=== PATIENT | male | born 1965 | race Caucasian/White ===

== ENCOUNTER 2025-07-11 18:12 | Emergency (ER) | payer BC, SELFPAY ==
--- OUTSIDE RECORDS SUMMARY | 2024-06-25 07:45 | XMS_ITS ---
Author Organization [facility] Address [address] [place] [address] [address] [place] [address] Care Team Providers Care Primary School Teacher Name Role Phone Elie Faith Unavailable [phone] Jake RIDDLE, Ino Unavailable Unavailable Lucia Faith Unavailable [phone] Medications Medication SIG (Take, Route, Frequency, Duration) Notes Start Date End Date Status Losartan Potassium 100 MG TAKE 1 TABLET BY MOUTH ONCE DAILY Oral; Duration: 90 Days Active PROzac 40 MG 1 capsule Orally Onc e a day Active Encounters Encounter Location Date Provider Diagnosis [facility] [address] [place] [address] [address] [place] [address] 06/25/2024 Lucia Faith Plan Of Treatment No Information Progress Notes * Nathaniel VARELADOB:[birth year] (60 yo M)Acc No.[id number]:06/25/2024 Patient: Nathaniel SIMON Provider: Butch Faith MD :1965 A ge:59 Y S ex:Male Date:06/25/2024 Address:[address] [place], [place] [id number] Subjective: * Chief Complaints: * * Medical History: * Medications: T aking PROzac 40 MG Capsule 1 capsule Orally Once a day , Taking Losartan Potassium 100 MG Tablet TAKE 1 TABLET BY MOUTH ONCE DAILY Oral Objective: * Vitals: Assessment: Plan: * Treatment: * Billing Information: * Visit Code: * Procedure Codes: * Electronic signature of Jennifer Faith MD on 07/11/2025 at 06:15 PM CDT Sign off status: Pending * Provider: Butch Faith MD Date: 0 06/25/2024 Generated for Dileep jaime/Evelio/Maty on: 0 07/11/2025 06:15 PM CDT
--- OUTSIDE RECORDS SUMMARY | 2024-06-25 08:00 | XMS_ITS ---
Author Organization [facility] Address [address] [place] [address] [address] [place] [address] Care Team Providers Care Newspaper Inserter Name Role Phone Elie Faith Unavailable [phone] Ino Joseph MD Unavailable Unavailable REASON FOR VISIT meds Encounters Encounter Location Date Provider Diagnosis [facility] [address] [place] [address] [address] [place] [address] 06/25/2024 Elie Faith Plan Of Treatment No Information Progress Notes * Nathaniel VARELADOB:[birth year] (60 yo M)Acc No.[id number]:06/25/2024 Progress Notes Patient: Nathaniel SIMON Provider: Dionne Faith MD :1965 A ge:59 Y S ex:Male Date:06/25/2024 Address:[address] [place], [place] [id number] Subjective: * Chief Complaints: * 1 . Meds. * Medical History: Objective: * Vitals: Assessment: Plan: * Treatment: * Billing Information: * Visit Code: * Procedure Codes: * Electronic signature of Natalie Faith MD on 07/11/2025 at 06:15 PM CDT Sign off status: Pending * Provider: Dionne Faith MD Date: 06/25/2024 Generated for Printi ng/Faxing/eTransmitting on: 07/11/2025 06:15 PM CDT
--- NOTE | 2025-07-11 18:13 | ED.UPPEXIN ---
HPI - Extremity Injury (Upper) General Chief Complaint: Extremity Injury, Upper Stated Complaint: Right Elbow Pain Time Seen by Provider: 07/11/25 18:13 Source: patient Mode of arrival: ambulatory Limitations: no limitations History of Present Illness HPI narrative: Nathaniel is a 60-year-old male patient presenting to the clinic today with complaints of right elbow swelling x1 month. He reports at times it can be painful. Denies any pain currently. 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 No redness or erythema. No fevers. Related Data Home Medications ?Medication ?Instructions ?Recorded ?Confirmed ?Last Taken ?Type buspirone 7.5 mg tablet 7.5 mg PO BID 09/20/19 09/20/19 Unknown History trazodone 25 mg PO HS 09/20/19 09/20/19 Unknown History fluoxetine 40 mg capsule mg 07/11/25 Unknown History losartan 100 mg tablet mg 07/11/25 Unknown History Allergies Allergy/AdvReac Type Severity Reaction Status Date / Time No Known Allergies Allergy Unverified 07/11/25 18:13 Review of Systems Review of Systems: Pertinent positives per HPI. Patient denies any fever, chills, rash, headache, visual changes, dizziness, cough, runny nose, sore throat, shortness of breath, chest pain, palpitations, nausea, vomiting, diarrhea, constipation, abdominal pain, or any urinary issues. PMFSH Comments At the time of my signature, I reviewed and agree with the nursing past medical, surgical, social, and family history. There is no relevant family history pertinent to the patient complaint. Exam Narrative: General: Well-developed, well nourished, in no apparent distress Head: Normocephalic, atraumatic. Cardio: Regular rate and rhythm, s1 and s2 normal, no murmur appreciated. Resp: Clear to auscultation bilaterally, no rhonchi, rales, wheezing or rubs. Musculoskeletal: No deformity, swelling with fluctuance to the right posterior elbow, non-tender to palpation, grossly normal range of motion, muscle strength strong and equal, peripheral pulse strong, no edema, no cyanosis, normal gait and station Course Course Emergency Course: Portions of this record may have been created with voice recognition software. Level of Care: Express Care Visit Vital Signs Vital signs: Vital Signs Temperature 36.4 C L 07/11/25 18:24 Pulse Rate 73 07/11/25 18:24 Respiratory Rate 16 07/11/25 18:24 Blood Pressure 149/78 H 07/11/25 18:24 Pulse Oximetry 97 07/11/25 18:24 Oxygen Delivery Room Air 07/11/25 18:24 Temperature 36.4 C L 07/11/25 18:24 Pulse Rate 73 07/11/25 18:24 Respiratory Rate 16 07/11/25 18:24 Blood Pressure 149/78 H 07/11/25 18:24 Pulse Oximetry 97 07/11/25 18:24 Oxygen Delivery Room Air 07/11/25 18:24 Vital signs reviewed MDM - Extremity Injury (Upper) MDM Narrative Medical decision making narrative: At the time of visit patient is resting comfortably on the exam table. Patient appears to be nontoxic. Complaints of right elbow swelling x1 month. He reports at times it can be painful. Denies any pain currently. 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 No redness or erythema. No fevers. On exam patient has swelling and fluctuance to the right elbow, nontender to palpation, no induration, no redness or erythema. Patient is requesting work note. Plan: I suspect patient has olecranon bursitis. Gregor wrap in ice pack was given to the patient. Station, circulation, motion within normal limits after application of the Gregor wrap. Supportive measures were discussed with the patient and they voiced understanding discharge instructions and agrees to treatment plan. Return precautions reviewed Differential Diagnosis Differential diagnosis: Likely other (Olecranon bursitis, elbow effusion, contusion, soft tissue swelling, humeral fracture, olecranon fracture) Discharge Plan Discharge Clinical Impression: Olecranon bursitis of right elbow Patient Disposition: Home Condition: Stable Instructions: Antibiotic Form, Elbow Bursitis (ED) Additional Instructions: Rest, ice, elevate, and wear gregor wrap as directed Tylenol/motrin for pain as discussed. Gradually bear weight No running or sports until healed. Follow up with your PCP if symptoms persist more than 1 week. Patient Language: Serbian Prescriptions: No Action buspirone 7.5 mg Tablet 7.5 mg PO BID trazodone 25 mg PO HS fluoxetine 40 mg capsule losartan 100 mg tablet Follow-up/Referrals: Gildardo,Juan Wharton MD [Primary Care Provider, Unknown] Stand Alone Forms: Work/School Release IP Time of Disposition: 18:30 Quality NIHSS Nursing Documentation ED NIHSS nursing documentation: reviewed/agree
--- OUTSIDE RECORDS SUMMARY | 2025-07-11 18:15 | XMS_ITS | Clinical Summary ---
Author Organization [facility] Address [address] [place] [address] Phone Care Team Providers Care Cigar Maker Name Role Phone Chirag Perez Primary Care Provider Allergies Active Allergy Reactions Criticality Noted Date Comments Codeine Shortness of Breath,Itching,Swelling 10/19/2015 Penicillins Anaphylaxis 10/30/2015 Medications lisinopril (PRINIVIL, ZESTRIL) 20 MG Tablet Take 20 mg by mouth daily. Active Esomeprazole Magnesium (NEXIUM PO) Take 1 Tab by mouth daily. Active Multiple Vitamins-Mineral s (MULTIVITAMIN PO) Take 1 Tab by mouth daily. Active Eastpoint-3 Fatty Acids (FISH OIL) 1200 MG Capsule Take 1,200 mg by mouth daily. Active B Complex Vitamins (B COMPLEX PO) Take 1 Tab by mouth daily. Active niacin 500 MG Tablet Take 500 mg by mouth 2 times daily. Active diazepam (VALIUM) 5 MG Tablet Valium 5mg #5 1 po 1 hour prior to MRI 5 Tab 0 10/30/2015 Active Nitroglycerin (RECTIV) 0.4 % Ointment 1 Inch by Rectal route 2 times daily. 1 Tube 0 01/14/2016 Active Family History Medical History Relation Name Comments No Known Problems Father No Known Problems Mother Relation Name Status Comments Father Alive Mother Alive Social History Tobacco Use Types Packs/Day Years Used Date Smoking Tobacco: Every Day Tobacco Cessation:Ready to Q uit: Yes; Counseling Given: Yes Alcohol Use Standard Drinks/Week Comments No 0 (1 standard drink = 0.6 oz pur e alcohol) Sex and Gender Information Value Date Recorded Sex Assigned at Not on file Legal Sex Male 8:42 PM CDT Gender Identity Not on file Sexual Orientation Not on file Last Filed Vital Signs Vital Sign Reading Time Taken Comments Blood Pressure 162/92 10/30/2015 7:50 AM TAWER Pulse 103 10/30/2015 7:50 AM TAWER Temperature 36.1 C (97 F) 10/30/2015 7:50 AM TAWER Respiratory Rate - - Oxygen Saturation 98% 10/30/2015 7:50 AM TAWER Inhaled Oxygen Concentration - - Weight 121.1 kg (267 lb) 07/02/2016 8:40 AM CDT Height 172.7 cm (5' 8) 10/30/2015 7:50 AM TAWER Body Mass Index 40.6 10/30/2015 7:50 AM TAWER Plan of Treatment Health Maintenance Due Date Last Done Comments Hepatitis C Virus (HCV) Screening 1965 TdaP Immunization 1965 Cologuard 2010 Immunochemical Fecal Occult Blood 2010 Pneumococcal Immunization (50+ years) (1 of 1 - PCV) 2015 Zoster Immunization (1 of 2) 2015 SARS-COV-2 Immunization ( - 2023- season) 2024 Influenza Immunization (#1) 2025 Colonoscopy 09/21/2025 09/21/2015 Colorectal Cancer Screening 09/21/2025 Respiratory Syncytial Virus (RSV) Immunization (Adult) (1 - 1-dose 75+ series) 2040 PSA Discussion Discontinued 09/25/2017, 03/21, 01/21/2017, Additional history exists Hepatitis B Immunization Aged Out No longer eligible based on patient's age to complete this topic Human Papillomavirus (HPV) Immunization Aged Out No longer eligible based on patient's age to complete this topic Meningococcal Immunization (ACWY) Aged Out No longer eligible based on patient's age to complete this topic Rotavirus Immunization Aged Out No lo nger eligible based on patient's age to complete this topic Procedures Procedure Name Priority Date/Time Associated Diagnosis Comments PSA DIAGNOSTIC,TOTAL Routine 09/25/2017 10:14 AM TAWER Malignant neoplasm of prostate (HCC) Elevated prostate specific antigen (PSA) HM COLONOSCOPY Routine 09/21/2015 from Last 3 Months or Most Recently Relevant to Health Maintenance Results * PSA DIAGNOSTIC,TOTAL (09/25/2017 10:14 AM TAWER) PSA, TOTAL (PROSTATIC SPECIFIC ANTIGEN) 0.01 0.00 - 4.00 ng/mL 09/25/2017 1:46 PM TAWER [facility] Blood specimen (specimen) Venipuncture / Unknown 09/25/2017 10:14 AM TAWER 09/25/2017 12:49 PM TAWER Narrative [facility] - 09/25/2017 1:46 PM TAWER PSA NOTE: The PSA value should be used in conjunction with information available from clinical evaluation and other diagnostic procedures. Zelalem Whitfield MD CHEMISTRY ORDERABLES Final Result [facility] [address] [place] [address] * COLONOSCOPY (09/21/2015) Willian Sotelo DO PROCEDURE/MINOR SURGICAL ORDERAB LES Final Result from Last 3 Months or Most Recently Relevant to Health Maintenance Insurance on file Care Teams Cigar Maker Relationship Specialty Start Date End Date Chirag Perez [address] [place] [address] PCP - General Internal Medicine 07/12/16
--- OUTSIDE RECORDS SUMMARY | 2025-07-11 18:15 | XMS_ITS | Clinical Summary ---
Author Organization [facility] Address [address] [place] [address] Care Team Providers Care Office Executive Name Role Phone Cindy Pinedo NP Unavailable Ace Macario MD Unavailable Óscar Kramer MD Unavailable Juan Ewing MD Primary Care Provider Dino Aguilar MD, Adal Uribe Unavailable Allergies Active Allergy Reactions Criticality Noted Date Comments Amoxicillin Anaphylaxis High Reaction: ANAPHYLAXIS-PATIENT DECLINES ALLERGY Codeine Shortness of breath Medium Reaction: DIFF BREATHING, Codeine Sulfate Shortness of breath High 12/24/2024 Erythromycin Anaphylaxis High Reaction: ANAPHYLAXIS-PT DECLINES ANY ALLERGIES Hydrocodone Shortness of breath High 12/24/2024 Hydrocodone-Acetaminop hen Itching Medium Reaction: ITCHING Iodine Shortness of breath High 12/24/2024 Reaction: DIFF BREATHING, Morphine Shortness of breath Medium Reaction: DIFF BREATHING, Oxycodone-Acetaminophe n Shortness of breath High Reaction: DIFF BREATHING, Oxycodone-Aspirin Shortness of breath Medium Reaction: DIFF BREATHING, Penicillin V Potassium Anaphylaxis High 12/24/2024 Penicillins Anaphylaxis High Reaction: ANAPHYLAXIS Pentazocine Shortness of breath Medium Reaction: DIFF BREATHING, Propoxyphene-Acetamino phen Shortness of breath Medium Reaction: DIFF BREATHING, Bupropion Itching Low 01/29/2019 Medications coenzyme Q10 100 mg capsule Take 1 capsule (100 mg total) by mouth daily Active multivitamin with minerals (Men's One Daily) tablet Take 1 tablet by mouth daily Active FLUoxetine (PROzac) 40 mg capsule Take 1 capsule (40 mg total) by mouth daily 90 capsule 3 04/29/2024 Active cyclobenzaprine (FLEXERIL) 5 mg tablet Take 1 tablet (5 mg total) by mouth 3 (three) times a day as needed for muscle spasms 90 tablet 04/29/2024 Active diphenhydrAMINE (BENADRYL) 50 mg capsule Take 1 capsule (50 mg total) by mouth once as needed for itching 30 capsule 12/18/2024 Active losartan (COZAAR) 100 mg tablet TAKE 1 TABLET BY MOUTH EVERY DAY 90 tablet 1 06/09/2025 Active doxycycline (VIBRAMYCIN) 100 mg capsule Take 1 tablet/capsu le (100 mg total) by mouth 2 (two) times a day for 10 days 20 tablet/capsul e 06/17/2025 06/27/20 25 Active Problems Problem Noted Date Diagnosed Date Cellulitis of dorsum of hand 12/17/2024 Tinnitus of both ears 06/12/2023 Assessment & Plan (06/12/2023 8:40 AM CDT): Hearing test [facility] A Few Causes of Ringing in Your Ears (Tinnitus) Agree with Dental evaluation today 1 pm and sleep apnea appointment Tobacco use 12/05/2022 Hematochezia 11/01/2022 Overview (11/01/2022): Added automatically from request for surgery [id number] Encounter for screening colonoscopy 11/01/2022 Overview (11/01/2022): Added automatically from request for surgery [id number] Allergic rhinitis 04/28/2021 Assessment & Plan (04/28/2021 9:56 AM CDT): Nasal saline spray (Simply saline, Little Remedies, [place], [place]) 2 second sprays or 2 squeezes into each nostril while looking down over the sink, do not need to sniff in or Sinus Rinse (Neti-pot) 1-2 times daily Consider Cetirizine 10 mg (Zyrtec) daily in the AM CT Sinus - call with results Blood Allergy testing - call with results Chronic maxillary sinusitis 04/07/2021 Assessment & Plan (04/28/2021 9:56 AM CDT): Nasal saline spray (Simply saline, [place] Remedies, [place], [place]) 2 second sprays or 2 squeezes into each nostril while looking down over the sink, do not need to sniff in or Sinus Rinse (Neti-pot) 1-2 times daily Consider Cetirizine 10 mg (Zyrtec) daily in the AM CT Sinus - call with results Blood Allergy testing - call with results Assessment & Plan (04/07/2021 6:25 PM CDT): Referral to ENT ordered. History of chronic sinus problems on the left side, multiple rounds of antibiotics. He has side effects/poor response to various treatments thus far. ILIA is mild Mixed hyperlipidemia 08/12/2019 Assessment & Plan (04/29/2024 4:45 PM CDT): Cholesterol panel slightly increased from previous. Still not at goal, he declines statin therapy. Assessment & Plan (05/27/2022 1:52 PM CDT): Cholesterol panel still not at goal, ASCVD risk 13%. Discussed risk factors with patient (smoking, HTN, lipid panel). Pt taking Red yeast rice but is agreeable to statin therapy trial. Rosuvastatin and vascepa ordered, stopping the red yeast rice. Assessment & Plan (10/08/2021 9:30 AM ORNAMENTAL IRON WORKER): Cholesterol panel not at goal, ASCVD risk 13%. Discussed with patient of risk factors (smoking, hypertension, cholesterol numbers). Recommended statin therapy but patient refuses at this time because he wants to try a better quality of red yeast rice and work on his diet as it has been poor with the increased anxiety/stress. Will repeat in 3 months Assessment & Plan (04/07/2021 6:26 PM CDT): Status: Awaiting labs Current regimen: Red yeast rice extract 600 mg daily; patient prefers herbal over prescription statin therapy Side effects: None Liver function tests: Awaiting labs Assessment & Plan (10/02/2020 12:46 PM ORNAMENTAL IRON WORKER): Awaiting labs Continue current regimen Assessment & Plan (08/13/2019 8:39 AM CDT): Patient states he got some leg and muscle aches on the Crestor. He has been taking red yeast rice instead. He has lost some weight since he was last seen in January. We will recheck a lipid panel and CMP and have him follow up in [address] Gildardo Paul 08/12/2019 Assessment & Plan (10/08/2021 9:32 AM ORNAMENTAL IRON WORKER): Stress and anxiety has been worsening with work/home projects/finances. Does not feel like the Buspar is working, he is inquiring about Fluoxetine. Discussed starting Fluoxetine and what to expect, will trial daily Fluoxetine 10 mg. Can continue the Buspar as it may take 4-6 weeks for Fluoxetine to take full effect. F/U in 6 weeks, sooner if needed. Assessment & Plan (10/02/2020 12:46 PM ORNAMENTAL IRON WORKER): Stable with the Buspar, continue Denies SI Assessment & Plan (08/13/2019 8:45 AM CDT): Patient is against starting an SSRI for anxiety. He is mostly concerned for the sexual side effects as he has a history of prostate cancer and has difficulty with sexual function as baseline. He is interested in trying BuSpar. I discussed how BuSpar works and how it is used. Will start BuSpar 7.5 mg twice daily. Will have him follow up in [address] Gildardo Ellsworth 08/12/2019 Gastroesophageal reflux disease 01/29/2019 Assessment & Plan (10/02/2020 12:44 PM ORNAMENTAL IRON WORKER): Stable Encouraged healthy diet and exercise Avoid trigger foods including: carbonated beverages, caffeine, spicy, fried foods, tomatoes, cucumbers, and mint Avoid eating/drinking anything for at least 2 hours before bed. Sleep with bed propped. Primary osteoarthritis of both knees 01/29/2019 Assessment & Plan (10/02/2020 12:45 PM ORNAMENTAL IRON WORKER): Stable, continue current regimen Essential hypertension 01/29/2019 Assessment & Plan (04/29/2024 4:45 PM CDT): BP stable in office, renal function in good shape. Continuing Losartan. Assessment & Plan (05/27/2022 8:50 AM CDT): BP elevated in office. Pt has not taken medication yet this morning and is drinking coffee. Educated on importance of decreasing caffeine intake and taking medication. Continue Losartan 100mg. Assessment & Plan (10/08/2021 9:27 AM ORNAMENTAL IRON WORKER): Home blood pressures ranging 145-155/75-100. Losartan was increased to 50 mg daily via MyChart per Jojo Lawrence, DNP x 1.5 weeks ago. BP in office continues to be elevated and patient's home BP's not at goal. Will increase Losartan to 100 mg daily. I do think that anxiety is playing a role here. Assessment & Plan (09/24/2021 12:36 PM CDT): Home BP's 139/82-150/90s Has been borderline for awhile, work more stressful and sister recently passed. Will trial Losartan 25 mg, labs ordered Keep BP log and bring to [facility] Assessment & Plan (04/07/2021 6:25 PM CDT): BP borderline elevated. Awaiting blood work results today. No current antihypertensive prescription on board Watching diet, he needs more exercise Assessment & Plan (10/02/2020 12:45 PM ORNAMENTAL IRON WORKER): Mildly elevated in office today Will continue current regimen and continue to monitor Class 3 severe obesity due t o excess calories with serious comorbidity and body mass index (BMI) of 40.0 to 44.9 in adult 01/29/2019 Assessment & Plan (07/08/2024 2:58 PM CDT): Healthy, low carbohydrate lifestyle and exercise for 150min/week recommended. Assessment & Plan (06/05/2023 8:52 AM CDT): BMI Follow-up includes: nutrition counseling, exercise counseling, and education provided. Assessment & Plan (04/19/2023 8:36 AM CDT): Pt interested in weight loss medication. Discussed diet and pt seems to eat a lot of fried/fatty foods with beer. Diet modifications and exercise highly encouraged. Education provided on GLP-1 and discussed potential side effects. Pt denies any personal or family history of medullary thyroid cancer. If not covered, could consider a pharmacy services director if patient agreeable to help with the diet changes. Assessment & Plan (05/27/2022 8:50 AM CDT): Healthy, low carbohydrate lifestyle and exercise for 150min/week recommended Assessment & Plan (03/07/2022 10:27 AM CDT): - chronic, not at goal weight - recommend increased physical activity and diet monitoring Assessment & Plan (10/08/2021 9:27 AM ORNAMENTAL IRON WORKER): Healthy, low carbohydrate lifestyle and exercise for 150min/week recommended Assessment & Plan (09/24/2021 12:36 PM CDT): Healthy, low carbohydrate lifestyle and exercise for 150min/week recommended Assessment & Plan (06/22/2021 3:37 PM CDT): Healthy, low carbohydrate lifestyle and exercise for 150min/week recommended Assessment & Plan (04/07/2021 6:24 PM CDT): BMI Follow-up includes: nutrition counseling and exercise counseling. Assessment & Plan (10/02/2020 10:20 AM ORNAMENTAL IRON WORKER): Healthy, low carbohydrate lifestyle and exercise for 150min/week recommended Assessment & Plan (02/14/2020 2:24 PM CDT): Healthy, low carbohydrate lifestyle and exercise for 150min/week recommended Erectile dysfunction following simple prostatect ananth 01/29/2019 Assessment & Plan (04/29/2024 4:46 PM CDT): Patient needs to get in with Urology, he will check with insurance to see who is covered so we can place referral. Assessment & Plan (05/27/2022 1:50 PM CDT): Patient inquired about getting his Bimex injection refilled by me and stated that his Urologist stated that his general practitioner could fill this for him, pt also stated he was released from Urology. Patient is scheduled for appointment on 05/30/22 though. I informed patient that I would not refill this medication as it is from speciality and I am not as familiar with the injection medications... that is why he sees Urology. Patient seemed agitated and stated that I work for him because his insurance pays me so he would like for me to take over on these refills. I explained to patient that I would not be doing so and if he would like to find a different practitioner he could but he would likely be hard-pressed to find someone in our office to do so as this is a more specialized Urology medication for E.D. When I mentioned he had upcoming appointment with Urology he said that's not the point and then mentioned how it was a long drive for him to go there. I again reiterated I would not be doing this for him and he finally verbalized understanding. Assessment & Plan (10/02/2020 12:46 PM ORNAMENTAL IRON WORKER): Recently saw Dr. Macario (uro), trying new treatment and working well Continue current recommendations and regimen Malignant neoplasm of prostate 12/28/2015 Cancer Staging:Pathologic stage from 12/28/2015:Stage IV(T3a, N1, cM0, PSA: 10 to 19, Gazelle 7) - Signed by Cindy Pinedo NP on 08/01/2018 Assessment & Plan (10/02/2020 12:44 PM ORNAMENTAL IRON WORKER): Remission Followed by Dr. Macario (uro) Continue current regimen Resolved Problems Problem Noted Date Diagnosed Date Resolved Date Hypersomnia 08/12/2019 03/07/2022 Assessment & Plan (08/13/2019 8:39 AM CDT): History of fatigue and snoring. 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 I ordered a home sleep test and we will call him when this is authorized through his insurance. Will have him follow up in [address] Ewing hopefully he will have this test done by the time he follows up Encounters Date Type Department Care Team Description 06/17/2025 Orders Only [facility] at [address] [address] Ce Amos NP Cellulitis of dorsum of hand (Primary Dx); MRSA (methicillin resistant staph aureus) culture positive 04/25/2025 Orders Only [facility] at [address] [place] [address] Netta Zepeda NP 04/25/2025 Telephone [facility] at [address] [address] Juan Ewing MD 04/25/2025 Telephone [facility] [address] [place] [phone] Bel Cordoba MA 04/22/2025 Telephone [facility] at [address] [place] [address] Anita Luevano NP 04/18/2025 10:11 AM CDT - 04/18/2025 11:59 PM CDT Hospital Encounter [address] [address] Abscess of right elbow Discharge Disposition: Discharge to home or self care 04/18/2025 9:30 AM CDT Office Visit [facility] [place] [address] [place] [address] Anita Luevano, JEANNINE Abscess of right elbow (Primary Dx); Cellulitis of right elbow 04/18/2025 Results Follow-Up [facility] [place] [address] [place] [address] Anita Luevano, JEANNINE Aerobic and anaerobic culture and gram stain Wound Elbow, right from Last 3 Months Immunizations Immunization Administration Dates Next Due Influenza, Quadrivalent, Spl it, Preservative Free, Intramuscular 10/02/2020,09/21/2019,09/21/2018 10/02/2021 Influenza, Trivalent, IM (MDV) 08/25/2017 Influenza, Unspecified 11/20/2023(Deferr ed: Patient Refused),10/31/2022(Deferred: Patient Refused),09/10/2021,09/21/2019,2017,08/20/2018 Tdap 10/02/2020,02/20/2017 ZOSTER Recombinant 11/06/2019,11/06/2019 Surgical History Surgery Date Site/Laterality Comments PROSTATE SURGERY SHOULDER SURGERY Bilateral 2004, 2020 COLONOSCOPY last screening 2014, change in bowel habits, blood in stool Medical History Medical History Date Comments Personal history of other di seases of the circulatory system History of hypertension - (A dded by TW Conv) Personal history of other di seases of the circulatory system History of angina pectoris - (Added by TW Conv) Personal history of other di seases of the respiratory system History of chronic obstructi ve lung disease - (Added by TW Conv) Personal history of other di seases of the digestive system History of gastric ulcer - ( Added by TW Conv) Personal history of other di seases of the musculoskeletal system and connective tissue History of backache - (Added by TW Conv) Personal history of other me ntal and behavioral disorders History of anxiety - (Added by TW Conv) Cancer (HCC) Prostate GERD (gastroesophageal reflux disease) Arthritis Family History Medical History Relation Name Comments Heart disease Father Family history of cardiac disorder - (Added by TW Conv) Colon cancer Father's Brother Prostate cancer Father's Brother Heart disease Maternal Grandmother Stroke Maternal Grandmother Heart disease Mother Relation Name Status Comments Father Father's Brother Maternal Grandmother Mother Social History Tobacco Use Types Packs/Day Years Used Date Smoking Tobacco: Former Cigarettes 0.5 43.5 0 11/20/1979 - 05/15/2023 Smokeless Tobacco: Never Tobacco Cessation:Counseling Given: Not Answered Alcohol Use Standard Drinks/Week Comments Not Currently 0 (1 standard drink = 0.6 oz pur e alcohol) last drank 5 years ago AUDIT-C Answer Date Recorded Q1: How often do you have a drink containing alc ohol? Never 12/02/2022 Average Number of Drinks Not on file 023 Frequency of Binge Drinking Not on file 11/20 PHQ-2 Answer Date Recorded PHQ-2 Total Score (If total score is 3 or more points, staff should administer the PHQ-9) 0 07/08/2024 Personal Safety Answer Date Recorded Have you ever been in or are you currently in a harmful physical or emotional relationship or is someone making you feel afraid or unsafe? Denies 12/17/2024 Sex and Gender Information Value Date Recorded Sex Assigned at Not on file Legal Sex Male 1:39 AM ORNAMENTAL IRON WORKER Gender Identity Male 07/06/2021 6:42 PM CDT Sexual Orientation Straight 07/06/2021 6: 42 PM CDT Obstetrics History Last Filed Vital Signs Vital Sign Reading Time Taken Comments Blood Pressure 122/78 04/18/2025 9:24 AM CDT Pulse 75 04/18/2025 9:24 AM CDT Temperature 36.5 C (97.7 F) 04/18/2025 9:24 AM CDT Respiratory Rate 19 04/18/2025 9:24 AM CDT Oxygen Saturation 99% 04/18/2025 9:24 AM CDT Inhaled Oxygen Concentration - - Weight 128.8 kg (284 lb) 04/18/2025 9:24 AM CDT Height 177.8 cm (5' 10) 04/18/2025 9:24 AM CDT Body Mass Index 40.75 04/18/2025 9:24 AM CDT Plan of Treatment Health Maintenance Due Date Last Done Comments Hepatitis B Screening 1983 Covid-19 Vaccine ( season) 2024 11/21/2021, 03/18/2021, 02/26/2021 Regular Well Visit/Exam 18-64 04/29/2025 04/29/2024, 12/10/2019 Lung Cancer Screening 05/19/2025 05/18/2024 Depression Screening 07/08/2025 07/08/2024, 04/29/2024, 06/05/2023, Additional history exists Influenza Vaccine (#1) 2025 , 09/03/2021, 10/02/2020, Additional history exists Prostate Cancer Screening-PSA 07/08/2026 07/08/2024, 04/23/2024, 06/05/2023, Additional history exists DTaP/Tdap/Td Vaccine (3 - Td or Tdap) 10/02/2030 10/02/2020, 02/20/2017 Colon Cancer Screening-Colonoscopy 12/02/2032 12/02/2022, 12/02/2022, 09/21/2015 Hepatitis C Screening Completed 02/02/2019, 019 Zoster Vaccine Completed 07/03/2021, 10/20, 11/06/2019 Colon Cancer Screening-CT Colonography Discontinued 12/02/2022, 12/02/2022, 09/21/2015 Colon Cancer Screening-DNA Stool Discontinued 12/02/2022, 12/02/2022, 09/21/2015 Colon Cancer Screening-FIT Discontinued 12/02, 12/02/2022, 12/02/2022, Additional history exists Colon Cancer Screening-Sigmoidoscopy Discontinued 12/02/2022, 12/02/2022, 09/21/2015 Pneumococcal vaccine <65 Aged Out No longer eligible based on patient's age to complete this topic Procedures Procedure Name Priority Date/Time Associated Diagnosis Comments AEROBIC AND ANAEROBIC CULTURE AND GRAM STAIN Routine 04/18/2025 10:11 AM CDT Abscess of right elbow PSA SCREEN Routine 07/08/2024 2:43 PM CDT Screening PSA (prostate specific antigen) CT LUNG CANCER SCREENING Schedule Routine, Read Routine (OP Routine) 05/18/2024 9:23 AM CDT Personal history of nicotine dependence COLONOSCOPY 12/02/2022 9:53 AM ORNAMENTAL IRON WORKER FIT OCCULT BLOOD, FECAL Routine 12/02/2022 7:29 AM ORNAMENTAL IRON WORKER Hematochezia HEPATITIS C ANTIBODY Routine 02/02/2019 12:40 PM CDT Encounter for hepatitis C virus screening test for high risk patient from Last 3 Months or Most Recently Relevant to Health Maintenance Results * (ABNORMAL) Aerobic and anaerobic culture and gram stain Wound Elbow, right (04/18/2025 10:11 AM CDT) Direct Specimen Exam Stain: No polymorphonuclear leukocytes seen. Moderate Gram Positive Cocci Comment:Testing performed by : [facility], [address] [place] [address]., [id number] Report Final Report: Few Staphylococcus aureus Methicillin resistant (MRSA) by penicillin binding protein 2a (PBP2a) testing. Rare Mixed skin microorganisms. (.) [place] Comment:Testing performed by : [facility], [address] [place] [address]., [id number] Organism STAPHYLOCOCCUS AUREUS [facility] Organism MIXED SKIN MICROORGANISMS. [facility] Wound (Elbow, right) 04/18/2025 10:11 AM CDT 04/18/2025 6:39 PM CDT Narrative [facility] - 04/25/2025 11:11 AM CDT Specimen received on an ESwab. Testing performed by [facility] ([phone]) Specimens submitted from normally sterile body sites will have all bacterial morphotypes identified. Specimens that contain grossly mixed radha and/or are from body sites that are not normally sterile will be examined for Staphylococcus aureus, Pseudomonas aeruginosa, beta-hemolytic strep, vancomycin-resistant Enterococcus, Bacteroides, Parabacteroides, Clostridium perfringens and fungus. If any of these are isolated, the organism will be reported. Current interpretive data was last revised on 2020. Organism Antibiotic Method Susceptibility Staphylococcus aureus Daptomycin (TOMMIE) (TOMMIE) INTERPRET ATION Susceptible Staphylococcus aureus Ceftaroline (TOMMIE) INTERPRETATIO N Susceptible Staphylococcus aureus Doxycycline (TOMMIE) INTERPRETATIO N Susceptible Staphylococcus aureus Linezolid (TOMMIE) INTERPRETATIO N Susceptible Staphylococcus aureus Trimethoprim with Sulfamethoxazole (TOMMIE) INTERPRETATION Susceptible Staphylococcus aureus Clindamycin (TOMMIE) INTERPRETATIO N Susceptible Staphylococcus aureus Erythromycin (TOMMIE) INTERPRETATIO N Resistant Staphylococcus aureus Vancomycin (TOMMIE) INTERPRETATIO N Susceptible Staphylococcus aureus Oxacillin (TOMMIE) INTERPRETATIO N Resistant Staphylococcus aureus Cefazolin (TOMMIE) INTERPRETATIO N Resistant Staphylococcus aureus Ceftriaxone (TOMMIE) INTERPRETATIO N Resistant Anita Luevano NP LAB MICROBIOLOGY - GENERAL ORDER CAROLINE Final Result Performing Organization Address [facility] [place] [address] Mariluz Mckeon Department [place] [address] * PSA screen (07/08/2024 2:43 PM CDT) PSA-Total <0.01 <=3.90 ng/mL Comment: Interpretive Data AGE SEX REFERENCE INTERVAL 0 minutes-150 years Female None 0 minutes-49 years Male None 50-59 years Male 0-3.90 60-69 years Male 0-5.40 70-79 years Male 0-6.20 80-150 years Male 0-6.20 The [employer] PSA Total assay procedure was used. Results from different manufacturers or methods may not be comparable. Serial testing should be performed using the same method. Current interpretive data last revised 22. Blood 07/08/2024 2:43 PM CDT 07/08/2024 8:02 PM CDT Delilah Ortiz NP LAB BLOOD ORDERABLES Final Resul t Performing Organization Address [facility] [place] [address] Mariluz Mckeon Department of [address] [place], [place] [id number] * CT Lung Cancer Screening (05/18/2024 9:23 AM CDT) Anatomical Region Laterality Modality Chest N/A Computed Tomogra phy 05/19/2024 9:54 AM CDT Narrative 05/19/2024 10:04 AM CDT EXAM DESCRIPTION: CT LUNG CANCER SCREENING REASON FOR STUDY: Screening CT of the chest in a former smoker with a 36 pack year smoking history. Additional history: Quit 1 year ago. TECHNIQUE: Low dose CT scan of the chest was performed without intravenous contrast using helical scanning technique. The exam extends from the lung apices through the lung bases. Automatic exposure control was used as a dose optimization technique. NOTE: This study was performed for the specific purposes of lung cancer screening and is not an alternative to diagnostic chest CT. RADIATION DOSE: CT dose index volume (CTDIvol) = 3.69 mGy COMPARISON: CT abdomen and pelvis 01/13/2016 FINDINGS: SMOKING RELATED LUNG DISEASE: No significant emphysematous changes noted. LUNG NODULES: Noncalcified subpleural 3 mm nodule in the anterior right lower lobe (image 196) is unchanged from 2016. Noncalcified 3 mm nodule in the lateral left upper lobe (image 100). Subpleural noncalcified 3 mm nodule in the posteromedial right upper lobe (image 92). Noncalcified 3 mm nodule in the posterior right upper lobe (image 70). PLEURAE: No pneumothorax or pleural effusion. CORONARY ARTERY CALCIFICATION: Mild MEDIASTINUM/CHEYENNE: No mediastinal or hilar lymphadenopathy. HEART: Heart size within normal limits. Trace pericardial effusion. VASCULATURE: No thoracic aortic aneurysm. AXILLAE: Prominent axillary lymph nodes are favored to be reactive. CHEST WALL: No masses. No subcutaneous air. HARDWARE/LINES/TUBES: None. UPPER ABDOMEN: Hepatic steatosis. MUSCULOSKELETAL: Mild thoracic spondylosis. IMPRESSION: Noncalcified pulmonary nodules measuring up to 3 mm. Lung-RADS category 2: Benign appearance or behavior. Recommendation: Low dose Screening CT of chest in 12 months. THIS IS AN ELECTRONICALLY VERIFIED FINAL REPORT 05/19/2024 10:04 AM - Electronically signed by Javi Lorenzo M.D. LB: MARIANO Report ID: [id number] Reading Location: [id number] Procedure Note Javi Lorenzo MD - 05/19/2024 EXAM DESCRIPTION: CT LUNG CANCER SCREENING REASON FOR STUDY: Screening CT of the chest in a former smoker with a36 pack year smoking history. Additional history: Quit 1 year ago. TECHNIQUE: Low dose CT scan of the chest was performed without intravenous contrast using helical scanning technique. The exam extends from the lung apices through the lung bases. Automatic exposure control was used as adose optimization technique. NOTE: This study was performed for the specific purposes of lung cancer screening and is not an alternative to diagnostic chest CT. RADIATION DOSE: CT dose index volume (CTDIvol) = 3.69 mGy COMPARISON: CT abdomen and pelvis 01/13/2016 FINDINGS: SMOKING RELATED LUNG DISEASE: No significant emphysematous changesnoted. LUNG NODULES: Noncalcified subpleural 3 mm nodule in the anterior right lower lobe (image 196) is unchanged from 2016. Noncalcified 3 mm nodulein the lateral left upper lobe (image 100). Subpleural noncalcified 3 mmnodule in the posteromedial right upper lobe (image 92). Noncalcified 3 mmnodule in the posterior right upper lobe (image 70). PLEURAE: No pneumothorax or pleural effusion. CORONARY ARTERY CALCIFICATION: Mild MEDIASTINUM/CHEYENNE: No mediastinal or hilar lymphadenopathy. HEART: Heart size within normal limits. Trace pericardial effusion. VASCULATURE: No thoracic aortic aneurysm. AXILLAE: Prominent axillary lymph nodes are favored to be reactive. CHEST WALL: No masses. No subcutaneous air. HARDWARE/LINES/TUBES: None. UPPER ABDOMEN: Hepatic steatosis. MUSCULOSKELETAL: Mild thoracic spondylosis. IMPRESSION: Noncalcified pulmonary nodules measuring up to 3 mm. Lung-RADS category 2: Benign appearance or behavior. Recommendation: Low dose Screening CT of chest in 12 months. THIS IS AN ELECTRONICALLY VERIFIED FINAL REPORT 05/19/2024 10:04 AM - Electronically signed by Javi Lorenzo M.D. LB: MARIANO Report ID: [id number] Reading Location: [id number] Delilah Ortiz NP IMG CT PROCEDURES Final Result * COLONOSCOPY (12/02/2022 9:53 AM ORNAMENTAL IRON WORKER) Anatomical Region Laterality Modality Other Narrative Procedure Note Mitzi White MD - 12/02/2022 9:53 AM CST [facility] Endoscopy Lab Patient Name: Nathaniel Kay Procedure Date: 12/02/2022 9:53 AM Date of : 1965 Admit Type: Outpatient Age: 57 Gender: Male Note Status: Finalized Attending MD: Mitzi White M.D. Procedure Date: 12/02/2022 Procedure: Colonoscopy Indications: Hematochezia Providers: Mitzi White M.D., Emily Diop, BOX WORKER (Anesthesia Staff), Lexi Reese, RN, Donn Fine, Supervisor Compressed Yeast Referring MD: Juan Ewing M.D. Medicines: Monitored Anesthesia Care Complications: No immediate complications. Estimated Blood Loss: Estimated blood loss was minimal. Procedure: Pre-Anesthesia Assessment: - Prior to the procedure, a History and Physicalwas performed, and patient medications and allergieswere reviewed. The patient is competent. The risks and benefits of the procedure and the sedation optionsand risks were discussed with the patient. Allquestions were answered and informed consent was obtained. Patient identification and proposed procedure were verified by the physician, the nurse and the aitchbone breaker in the procedure room. Mental Status Examination: alert and oriented. AirwayExamination: normal oropharyngeal airway and neck mobility. Respiratory Examination: clear to auscultation. CV Examination: normal. Prophylactic Antibiotics: The patient does not require prophylactic antibiotics. Prior Anticoagulants: The patient has taken no anticoagulant or antiplatelet agents. ASA Grade Assessment: III - A patient with severe systemic disease. After reviewing the risks and benefits,the patient was deemed in satisfactory condition to undergo the procedure. The anesthesia plan was touse monitored anesthesia care (MAC). Immediately priorto administration of medications, the patient was re-assessed for adequacy to receive sedatives. The heart rate, respiratory rate, oxygen saturations, blood pressure, adequacy of pulmonary ventilation,and response to care were monitored throughout the procedure. The physical status of the patient was re-assessed after the procedure. - The risks and benefits of the procedure and the sedation options and risks were discussed with the patient. All questions were answered and informed consent was obtained. After I obtained informed consent, the scope was passed under direct vision. Throughout theprocedure, the patient's blood pressure, pulse, and oxygen saturations were monitored continuously. The scopewas passed under direct vision. The Colonoscope was introduced through the anus and advanced to the the cecum, identified by appendiceal orifice andileocecal valve. The colonoscopy was performed without difficulty. The patient tolerated the procedurewell. The quality of the bowel preparation was adequate.The bowel preparation used was Clenpiq via split dose instruction. Findings: A 2 mm polyp was found in the cecum. The polyp was sessile. The polyp was removed with a jumbo cold forceps. Resection and retrieval were complete. Estimated blood loss was minimal. A 10 mm polyp was found in the transverse colon. The polyp wassessile. Preparations were made for mucosal resection. Everlift was injectedto raise the lesion. Snare mucosal resection was performed. Resectionand retrieval were complete. Estimated blood loss was minimal. A 5 mm polyp was found in the sigmoid colon. The polyp was sessile.The polyp was removed with a jumbo cold forceps. Resection and retrieval were complete. Estimated blood loss was minimal. Multiple small-mouthed diverticula were found in the left colon. Non-bleeding internal hemorrhoids were found during retroflexion. The hemorrhoids were mild. Impression: - One 2 mm polyp in the cecum, removed with a jumbo cold forceps. Resected and retrieved. - One 10 mm polyp in the transverse colon, removed with mucosal resection. Resected and retrieved. - One 5 mm polyp in the sigmoid colon, removed witha jumbo cold forceps. Resected and retrieved. - Diverticulosis in the left colon. - Non-bleeding internal hemorrhoids. - Mucosal resection was performed. Resection and retrieval were complete. Recommendation: - Await pathology results. - Preparation H suppository: Insert rectally as necessary. - Repeat colonoscopy in 5 years for surveillancebased on pathology results. Procedure Code(s): --- Professional --- 37687, Colonoscopy, flexible; with endoscopicmucosal resection 51460, 59, Colonoscopy, flexible; with biopsy,single or multiple Diagnosis Code(s): --- Professional --- D12.0, Benign neoplasm of cecum D12.3, Benign neoplasm of transverse colon (hepatic flexure or splenic flexure) D12.5, Benign neoplasm of sigmoid colon K64.8, Other hemorrhoids K92.1, Melena (includes Hematochezia) K57.30, Diverticulosis of large intestine without perforation or abscess without bleeding CPT copyright 2020 [employer]. All rights reserved. The codes documented in this report are preliminary and upon office administrative assistant reviewmay be revised to meet current compliance requirements. Electronically signed by Mitzi White M.D. Mitzi White M.D. 12/02/2022 10:44:51 AM Number of Addenda: 0 Note Initiated On: 12/02/2022 9:53 AM Mitzi White MD ENDOSCOPY PROCEDURES Fi nal Result * FIT occult blood, fecal (12/02/2022 7:29 AM ORNAMENTAL IRON WORKER) Fecal Globin Result: Not Detected [facility] Comment: NO COLLECTION DATE RECEIVED. WE HAVE USED THE DATE THE SPECIMEN WAS RECEIVED BY THIS LABORATORY THE COLLECTION DATE. IF THIS IS INCORRECT, PLEASE CONTACT CLIENT SERVICES. PHONE NUMBER: [phone] Stool 11/25/2022 2:1 6 PM ORNAMENTAL IRON WORKER Narrative [facility] - 12/02/2022 7:29 AM ORNAMENTAL IRON WORKER SPLIT 11/25/2022 FROM [id number] Juan Ewing MD LAB BODY FLUIDS AND STOOLS ORDERABLES Final Result [facility] [address] [id number] * Hepatitis C antibody (02/02/2019 12:40 PM CDT) Hep C Ab Negative Negative [facility] ([place]) Comment:Testing performed by : [facility], [address] [place] [address], [place]., [address] Blood specimen (specimen) 02/02/2019 12:40 PM CDT 02/04/2019 9:31 AM CDT Narrative [facility] ([place]) - 02/04/2019 10:17 AM CDT Juan Ewing MD LAB MICROBIOLOGY - GENERAL ORDERABLES Final Result [facility] ([place]) [address] [facility] Department [place] [address] from Last 3 Months or Most Recently Relevant to Health Maintenance Insurance [facility] Advance Directives For more information, please contact: [phone] * Full Code (Latest Code Status on File) Date Activated Date Inactivated Comments 12/17/2024 4:24 PM 12/18/2024 9:01 PM Care Teams Office Executive Relationship Specialty Start Date End Date Juan Ewing MD [address] [facility] [address] [place], [place] [id number] PCP - General Family Medicine 09/14/22 Cindy Pinedo NP Nurse Practitioner Radiation Oncology 08/06/18 Ace Macario MD [address] [facility] [id number] [place] [address] Consulting Physician Urology 01/29/19 Óscar Kramer MD [address] [facility] [address] [place] [address] Consulting Physician Orthopedic Surgery 04/02/21 Adal Sun Jr., MD [address] [place] [id number] Surgeon Orthopedic Surgery 10/31/22
--- OUTSIDE RECORDS SUMMARY | 2025-07-11 18:16 | XMS_ITS | Patient Health Record ---
Author Organization [facility] Address [address] [place] [address] [address] [place] [address] Care Team Providers Care Sales And Service Specialist Name Role Phone Elie Faith Unavailable [phone] Ino Joseph MD Unavailable Unavailable Allergies Allergen (clinical drug ingredient) Drug/Non Drug Allergy documented on EMR Reaction Allergy Type Onset Date Status codeine Codeine Sulfate Unknown Drug Allergy A ctive penicillin V Penicillin V Potassium Unknown Drug Allergy Active hydrocodone Hydrocodone Unknown Drug Allergy Act jai Iodine Unknown Drug Allergy Active Reason For Referral No Information Medications Medication SIG (Take, Route, Frequency, Duration) Notes Start Date End Date Status Losartan Potassium 100 MG TAKE 1 TABLET BY MOUTH ONCE DAILY Oral; Duration: 90 Days Unknown PROzac 40 MG 1 capsule Orally Onc e a day Unknown Problems Problem Type SNOMED Code ICD Code Onset Dates Problem Status W/U Status Risk Notes Problem Nondependent alcohol abuse in remission (585748375) Alcohol abuse, 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) Active confirmed Problem Nondependent opioid abuse in remission (033273178) Opioid abuse, in remission (F11.11) Active confirmed Problem Lumbar pain (131168879) Lumbar pain (M54.50) Active confirmed Problem Essential hypertension (64330353) Essential hypertension (I10) Active confirmed Problem Lumbar radiculopathy (057947717) Lumbar radiculopathy (M54.16) Active confirmed Problem Obesity (508185261) Obesity (E66.9) [place] [address] Vital Signs Heart Rate 81 /min 07/11/2024 Respiratory Rate 18 /min 07/11/2024 Height-cm 177.8 cm 07/11/2024 Blood pressure diastolic 70 mm Hg 07/11/2024 Weight-kg 117.93 kg 07/11/2024 Height 5ft 10 in in 07/11/2024 Blood pressure systolic 127 mm Hg 07/11/2024 Weight 260 lbs 07/11/2024 BMI 37.3 kg/m2 07/11/2024 Encounters Encounter Location Date Provider Diagnosis [facility] [address] [facility] [address] [place] [address] 07/11/2024 Elie Plazanberg Lumbar radiculopathy M54.16 ; Lumbar spine pain M54.50 ; Degenerative joint disease (DJD) of lumbar spine M47.816 ; Sacroiliitis M46.1 and Obesity E66.9 Assessments Encounter Date Diagnosis (ICD Code) Assessment Notes Treatment Notes Treatment Clinical Notes Section Notes 07/11/2024 Lumbar radiculopathy (ICD-10 - M54.16) 07/11/2024 Lumbar spine pain (ICD-10 - M54.50) 07/11/2024 Degenerative joint disease (DJD) of lumbar spine (ICD-10 - M47.816) 07/11/2024 Sacroiliitis (ICD-10 - M46.1) 07/11/2024 Obesity (ICD-10 - E66.9) 07/11/2024 Other Body Mass Index: Care Instructions material was published, High Blood Pressure: Care Instructions material was published Patient is already undergoing injection therapy. He is not a surgical candidate. Patient does not appear to benefit from brace. I have recommended physical therapy and change in career. Patient has reached maximum medical improvement. Plan Of Treatment No Information Insurance Providers Payer Name Payer Address Payer Phone Subscriber Number Group Number Insured Name Patient Relationship to Insured Coverage Start Date Coverage End Date [employer] [address] [place] [address] [id number] Nathaniel Kay Self - patient is the insured Medications Administered Medication Instructions Date of Administration Dosage Notes DEPO-Medrol 06/18/2024 80 mg L5-S1 LES
--- OUTSIDE RECORDS SUMMARY | 2025-07-11 18:16 | XMS_ITS | Clinical Summary ---
Author Organization [facility] Address [facility] [place] [address] Care Team Providers Care Global Transportation Manager Name Role Phone Unavailable Primary Care Provider Unavailabl e Allergies Active Allergy Reactions Criticality Noted Date Comments Oxycodone-Acetaminophen Itching 09/24/2021 And angry mood Medications vitamin B-12 (CYANOCOBALAMIN ) 1000 mcg tablet Take 10,000 mcg by mouth daily. Active Multiple Vitamins-Minera ls (CENTRUM SILVER ADULT 50+ OR) Take 1 tablet by mouth daily. Active fish oil (OMEGA-3 FATTY ACID) 1000 MG Cap capsule Take 500 mg by mouth daily. Active vitamin D3, cholecalciferol , 5000 UNITS capsule Take 1 capsule by mouth daily. Active zinc gluconate 50 MG Tab Take 1 tablet by mouth daily. Active vitamin C 250 MG tablet Take 282 mg by mouth daily. Active busPIRone 10 MG tablet Take 10 mg by mouth 2 (two) times daily. Active meloxicam 7.5 MG tablet Take 7.5 mg by mouth daily as needed for Pain. Active famotidine 20 MG tablet Take 20 mg by mouth daily as needed for Heartburn. Active traZODone Tab 25 mg (50 mg split tab) Take 25-50 mg by mouth nightly as needed. Active losartan 50 MG tablet Take 50 mg by mouth daily. Active HYDROcodone-ania taminophen 5-325 MG tabletIndicatio ns:Chronic Pain Take 1 tablet by mouth every 6 (six) hours as needed. Indications: Chronic Pain 10 tablet 10/01/2021 Active Active Problems No known active problems Family History Medical History Relation Comments No Known Problems Father Stroke Maternal Grandmother No Known Problems Mother Relation Status Comments Father Alive Maternal Grandmother Mother Alive Social History Tobacco Use Types Packs/Day Years Used Date Smoking Tobacco: Every Day Cigarettes 1 40 Smokeless Tobacco: Current Chew Alcohol Use Standard Drinks/Week Comments Not Currently 0 (1 standard drink = 0.6 oz pur e alcohol) none in 10 years Sex and Gender Information Value Date Recorded Sex Assigned at Not on file Legal Sex Male 2:28 PM CDT Gender Identity Not on file Sexual Orientation Not on file Last Filed Vital Signs Vital Sign Reading Time Taken Comments Blood Pressure 136/86 10/01/2021 10:10 AM AMMUNITION ASSEMBLY LABORER Pulse 65 10/01/2021 10:10 AM AMMUNITION ASSEMBLY LABORER Temperature 36.1 C (97 F) 10/01/2021 8:41 AM AMMUNITION ASSEMBLY LABORER Respiratory Rate 18 10/01/2021 10:10 AM AMMUNITION ASSEMBLY LABORER Oxygen Saturation 99% 10/01/2021 10:10 AM AMMUNITION ASSEMBLY LABORER Inhaled Oxygen Concentration - - Weight 109.8 kg (242 lb 1 oz) 10/01/2021 7:13 AM AMMUNITION ASSEMBLY LABORER Height 177.8 cm (5' 10) 09/24/2021 9:21 AM CDT Body Mass Index 34.73 09/24/2021 9:21 AM CDT Plan of Treatment Health Maintenance Due Date Last Done Comments Colorectal Cancer Screening Colonoscopy (10 Years) 1965 Annual Physical 1968 Hepatitis C 1983 Pneumococcal Vaccine: 50+ Years (1 of 2 - PCV) 1984 Zoster Vaccines (2 of 2) 01/01/2020 11/06/2019 COVID-19 Vaccine (1 - 2023-2 5 season) 2024 DTaP, Tdap and Td Vaccines ( 3 - Td or Tdap) 10/02/2030 10/02/2020, 02/20/2017 RSV Immunization or 60+ Years (1 - 1-dose 75+ series) 2040 Meningococcal B Vaccine Aged Out No l onger eligible based on patient's age to complete this topic Meningococcal Vaccine Aged Out No colton fabian eligible based on patient's age to complete this topic RSV Immunizations Under 20 Months Aged Out No longer eligible b ased on patient's age to complete this topic Medical Devices Implanted Type Area Product Development Actuary Device Identifier Shelf Expiration Date Model / Serial / Lot Markers For Prostate Cancer Insurance
--- OUTSIDE RECORDS SUMMARY | 2025-07-11 18:16 | XMS_ITS ---
Author Organization [facility] Address [address] [place] [address] Care Team Providers Care Aluminum Siding Installer Name Role Phone Cindy Pinedo NP Unavailable Ace Macario MD Unavailable Óscar Kramer MD Unavailable [phone] Juan Ewing MD Primary Care Provider Dino Aguilar MD, Adal Uribe Unavailable Active Problems Problem Noted Date Diagnosed Date Cellulitis of dorsum of hand 12/17/2024 Tinnitus of both ears 06/12/2023 Assessment & Plan (06/12/2023 8:40 AM CDT): [facility] test [facility] A Few Causes of Ringing in Your Ears (Tinnitus) Agree with Dental evaluation today 1 pm and sleep apnea appointment Tobacco use 12/05/2022 Hematochezia 11/01/2022 Overview (11/01/2022): Added automatically from request for surgery [id number] Encounter for screening colonoscopy 11/01/2022 Overview (11/01/2022): Added automatically from request for surgery [id number] Allergic rhinitis 04/28/2021 Assessment & Plan (04/28/2021 9:56 AM CDT): Nasal saline spray (Simply saline, Little Remedies, [place], [place]) 2 second sprays or 2 squeezes into [...] Nasal saline spray (Simply saline, Little Remedies, [place], [place]) 2 second sprays or 2 squeezes into [...] rice. Assessment & Plan (10/08/2021 9:30 AM UX DEVELOPER DESIGNER): Cholesterol panel not at goal, ASCVD risk [...] labs Assessment & Plan (10/02/2020 12:46 PM UX DEVELOPER DESIGNER): Awaiting labs Continue current regimen Assessment & [...] 08/12/2019 Assessment & Plan (10/08/2021 9:32 AM UX DEVELOPER DESIGNER): Stress and anxiety has been worsening with [...] needed. Assessment & Plan (10/02/2020 12:46 PM UX DEVELOPER DESIGNER): Stable with the Buspar, continue Denies SI [...] 01/29/2019 Assessment & Plan (10/02/2020 12:44 PM UX DEVELOPER DESIGNER): Stable Encouraged healthy diet and exercise Avoid trigger foods including: carbonated beverages, caffeine, spicy, fried foods, tomatoes, cucumbers, and mint Avoid eating/drinking anything for at least 2 hours before bed. Sleep with bed propped. Primary osteoarthritis of both knees 01/29/2019 Assessment & Plan (10/02/2020 12:45 PM UX DEVELOPER DESIGNER): Stable, continue current regimen Essential hypertension 01/29/2019 [...] 100mg. Assessment & Plan (10/08/2021 9:27 AM UX DEVELOPER DESIGNER): Home blood pressures ranging 145-155/75-100. Losartan was [...] ordered Keep BP log and bring to [facility] Assessment & Plan (04/07/2021 6:25 PM CDT): BP borderline elevated. Awaiting blood work results today. No current antihypertensive prescription on board Watching diet, he needs more exercise Assessment & Plan (10/02/2020 12:45 PM UX DEVELOPER DESIGNER): Mildly elevated in office today Will continue [...] cancer. If not covered, could consider a gravel hauler if patient agreeable to help with the diet changes. Assessment & Plan (05/27/2022 8:50 AM CDT): Healthy, low carbohydrate lifestyle and exercise for 150min/week recommended Assessment & Plan (03/07/2022 10:27 AM CDT): - chronic, not at goal weight - recommend increased physical activity and diet monitoring Assessment & Plan (10/08/2021 9:27 AM UX DEVELOPER DESIGNER): Healthy, low carbohydrate lifestyle and exercise for 150min/week recommended Assessment & Plan (09/24/2021 12:36 PM CDT): Healthy, low carbohydrate lifestyle and exercise for 150min/week recommended Assessment & Plan (06/22/2021 3:37 PM CDT): Healthy, low carbohydrate lifestyle and exercise for 150min/week recommended Assessment & Plan (04/07/2021 6:24 PM CDT): BMI Follow-up includes: nutrition counseling and exercise counseling. Assessment & Plan (10/02/2020 10:20 AM UX DEVELOPER DESIGNER): Healthy, low carbohydrate lifestyle and exercise for [...] understanding. Assessment & Plan (10/02/2020 12:46 PM UX DEVELOPER DESIGNER): Recently saw Dr. Macario (uro), trying new treatment and working well Continue current recommendations and regimen Malignant neoplasm of prostate 12/28/2015 Cancer Staging:Pathologic stage from 12/28/2015:Stage IV(T3a, N1, cM0, PSA: 10 to 19, [place] 7) - Signed by Cindy Pinedo NP on 08/01/2018 Assessment & Plan (10/02/2020 12:44 PM UX DEVELOPER DESIGNER): Remission Followed by Dr. Macario (uro) Continue current regimen Current Treatment and Therapy Plans No current plan information found. Past Treatment and Therapy Plans No past plan information found. Lifetime Dose Tracking * Chemical Lifetime Dose Automatic Entry Manual Entr y DLP 118.7 mGycm 118.7 mGycm 0 mGycm CTDIvol 3.69 mGy 3.69 mGy 0 mGy Resolved Problems Problem Noted Date Diagnosed Date [...]
[2025-07-11 18:24] VITALS: BP 149/78; PULSE 73; RESP 16; TEMP 36.4; O2SAT 97
== END 2025-07-11 18:35 | disposition home or self-care (01) ==
PROVIDERS: Emergency Provider Nurse Practitioner Family; PCP Family Medicine
DX: M70.21 Olecranon bursitis, right elbow (principal); F41.9 Anxiety disorder, unspecified; Z90.79 Acquired absence of other genital organ(s)
CPT/HCPCS: 99202; G0463